=== PATIENT | female | born 1955 | race Caucasian/White ===

== ENCOUNTER 2021-07-24 05:25 | Day surgery (SDC) | payer OTHER ==
[2021-07-20 15:05] VITALS: BMI 24.7
[2021-07-24 08:38] VITALS: TEMP 97.5
[2021-07-24 09:12] VITALS: BP 124/63; PULSE 47
== END 2021-07-24 09:40 | disposition home or self-care (01) ==
LOC: JASU-ENDO 05:25
PROVIDERS: ATTEND Internal Medicine Gastroenterology
PROC: 0DJD8ZZ Inspection of Lower Intestinal Tract, Via Natural or Artificial Opening Endoscopic (ICD-10-PCS; principal; 2021-07-24 08:00)
DX: Z12.11 Encounter for screening for malignant neoplasm of colon (principal); Z86.010 Personal history of colon polyps